=== PATIENT | female | born 1975 | race Caucasian/White ===

== ENCOUNTER 2018-04-15 13:49 | Emergency (ER) | payer OTHER, MEDICAID, SELFPAY ==
[2018-04-15 13:56] VITALS: BP 125/74; PULSE 87; RESP 20; TEMP 36.7; O2SAT 98
--- NOTE | 2018-04-15 14:14 | ED_ITS ---
HPI - Headache <Maribel Burgess PA-C - Last Filed: 04/15/18 21:39> General Chief Complaint: Headache Stated Complaint: SINUS PAIN AND HEADACHE,DIZZINESS Time Seen by Provider: 04/15/18 14:05 Source: patient Mode of arrival: ambulatory Limitations: no limitations History of Present Illness HPI Narrative: this 42 year old female due to what she states are ongoing sinus problems. She states there are no acute changes today, but her mom urged her to come in. She states that she has had symptoms since October, with intermittent vertigo and sinus pain. She states that pain is centered on the left side in her eye and also has pain in her teeth. She feels postnasal drip but does not bring that up. She also has a sensation of liquid in her ears and earache. She states that she has a history of ocular migraine and has had intermittent blurred vision since October, onset of these headaches. She states sometimes she feels a tingling in the side of her face. She states that she has not had cough, maybe had fever of 99 a couple of days ago but otherwise no fever. She was treated in October with antibiotics and states that she got better for several months, but now has had 2 more courses of antibiotics since January. She states she got somewhat better in January but not fully resolved, and now started again by PCP on cephalosporin 7 days ago and not better. She states that she continues to have increased sinus pain. She complains of spinning sensation and vertigo with head movements and position changes. She has had ongoing nausea but no vomiting. She has had swollen glands. She has not had any facial weakness or extremity weakness and has been going about her usual activities. She states that she has been eating and drinking normally and has actually been quite hungry. She states that her migraines sometimes respond to Excedrin and Advil. She states that tripped hands have no affect. She states that she is on propanolol for prophylaxis and sometimes takes and alprazolam to get rest and sometimes that helps, but sinus symptoms have been atypical for her. she states she does have some mild tinnitus off and on but not particularly bothersome. She denies cough, wheeze, or other new symptoms today. Related Data Allergies Allergy/AdvReac Type Severity Reaction Status Date / Time No Known Drug Allergies Allergy Verified 04/15/18 15:31 Review of Systems <Maribel Burgess PA-C - Last Filed: 04/15/18 21:39> Review of Systems ROS Unobtainable: All systems reviewed & are unremarkable except as noted in HPI and below PFSH <Maribel Burgess PA-C - Last Filed: 04/15/18 21:39> Surgical History Status post hysterectomy (Resolved) Social History Smoking Status: Former smoker Social History Smoking Status: Former smoker Comment: denies EtOH Exam <Maribel Burgess PA-C - Last Filed: 04/15/18 21:39> Narrative Exam Narrative: GENERAL APPEARANCE: Patient sitting comfortably, in no distress. HEAD: left maxillary and frontal tenderness, none on the right EYES: PERRL, EOMI. EARS: Normal auditory canals, TMS intact with normal light reflexes. ORAL CAVITY: Normal oropharynx. THROAT: Clear. NECK/THYROID: Neck supple, full range of motion, few small anterior cervical nodes, no supraclavicular nodes LUNGS: Clear to auscultation bilaterally, no cough on exam. HEART: RRR without murmur, nl S1, S2, no S3 or S4. NEUROLOGIC: Patient is alert and oriented with normal speech and coordination Initial Vital Signs Initial Vital Signs: Vital Signs Temperature 98.0 F 04/15/18 13:56 Pulse Rate 87 04/15/18 13:56 Respiratory Rate 20 04/15/18 13:56 Blood Pressure 125/74 04/15/18 13:56 Pulse Oximetry 98 04/15/18 13:56 <Landy Salazar DO - Last Filed: 04/16/18 07:24> Initial Vital Signs Initial Vital Signs: Vital Signs Temperature 98.0 F 04/15/18 13:56 Pulse Rate 87 04/15/18 13:56 Respiratory Rate 20 04/15/18 13:56 Blood Pressure 125/74 04/15/18 13:56 Pulse Oximetry 98 04/15/18 13:56 Course <SON Villarreal Last Filed: 04/15/18 21:39> Additional Information: Patient reported that nausea improved prior to Zofran and declined this. She is feeling markedly improved after Toradol and sitting up eating potato chips prior to discharge. Reviewed CT findings and advised discontinuing antibiotics. 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 Discussed certainly this could be migraine variant but they may want to consider further imaging and neurology consult as well as possible ENT Orders Ordered: Discontinued Medications Sodium Chloride (Normal Saline 0.9%) 1,000 mls @ 1,000 mls/hr IV BOLUS ONE Stop: 04/15/18 15:37 Last Infusion: 04/15/18 16:52 Dose: 0 mls/hr Admin: 04/15/18 15:19 Dose: 1,000 mls/hr Ketorolac Tromethamine (Toradol) 30 mg IV NOW ONE Stop: 04/15/18 14:39 Last Admin: 04/15/18 15:20 Dose: 30 mg Ondansetron HCl (Zofran) 4 mg IV NOW ONE Stop: 04/15/18 14:39 Last Admin: 04/15/18 16:52 Dose: Not Given Vital Signs - 8 hr 04/15/18 13:56 04/15/18 17:04 Temperature 98.0 F 98.6 F Pulse Rate 87 83 Respiratory Rate 20 16 Blood Pressure 125/74 112/77 Pulse Oximetry 98 100 <Landy Salazar DO - Last Filed: 04/16/18 07:24> Orders Ordered: Discontinued Medications Sodium Chloride (Normal Saline 0.9%) 1,000 mls @ 1,000 mls/hr IV BOLUS ONE Stop: 04/15/18 15:37 Last Infusion: 04/15/18 16:52 Dose: 0 mls/hr Admin: 04/15/18 15:19 Dose: 1,000 mls/hr Ketorolac Tromethamine (Toradol) 30 mg IV NOW ONE Stop: 04/15/18 14:39 Last Admin: 04/15/18 15:20 Dose: 30 mg Ondansetron HCl (Zofran) 4 mg IV NOW ONE Stop: 04/15/18 14:39 Last Admin: 04/15/18 16:52 Dose: Not Given Vital Signs - 8 hr 04/15/18 13:56 04/15/18 17:04 Temperature 98.0 F 98.6 F Pulse Rate 87 83 Respiratory Rate 20 16 Blood Pressure 125/74 112/77 Pulse Oximetry 98 100 MDM - Headache <Maribel Burgess PA-C - Last Filed: 04/15/18 21:39> Imaging Data sinus CT: Radiologist's impression: 41 Maribel Burgess PA-C Find Patient Imaging YNAI AGUILAR 42 F 1975 ACTIVITY DATE EXAM STATUS AUTHOR 04/15/18 14:[address] [address] [address] Scan Report Signed Patient: YANI AGUILAR BMR#: [id number] : 1975Acct:[id number] Age/Sex: 42 / FDate of Service: 04/15/18 Loc: ED Accession Number: [id number] Procedure: CT sinus screen wo con Ordering Provider: Maribel Burgess P.A-C PROCEDURE: CT SINUS SCREEN WO CON INDICATIONS: h/o ocular migraine, persistent L. sided sinus pain TECHNIQUE: Noncontrast 3.0 mm axial images acquired from the frontal sinuses to the mid- sella, with coronal and sagittal reformats. For radiation dose reduction, the following was used: automated exposure control, adjustment of mA and/or kV according to patient size. COMPARISON: None. FINDINGS: Image quality: Excellent. Maxillary Sinuses: No bony remodeling or destruction. Sinuses are clear. Ethmoid Air Cells: No bony remodeling or destruction. Sinuses are clear. Sphenoid Sinuses: No bony remodeling or destruction. Sinuses are clear. Frontal Sinuses: No bony remodeling or destruction. Sinuses are clear. Ostiomeatal Complexes: Ostiomeatal complexes are patent. No Corinne cells. Miscellaneous: Visualized intra-orbital contents are normal. No florence bullosa or paradoxical turbinate curvature. No nasal septal deviation. IMPRESSION: Clear sinuses. Dictated by: Elias Hernández M.D. on 04/15/2018 at 16:06 Approved by: Elias Hernández M.D. on 04/15/2018 at 16:07 Discharge Plan Departure Patient Disposition: Home Clinical Impression: Vertigo Migraine Qualifiers: Migraine type: unspecified Status migrainosus presence: without status migrainosus Intractability: not intractable Qualified Code(s): G43.909 - Migraine, unspecified, not intractable, without status migrainosus Discharge Date/Time: 04/15/18 17:04 Interventions: ED Discharge Assessment Last Done: 04/15/18 17:04 Instructions: DI for Migraine, DI for Vertigo Activity Restrictions/Additional Instructions: since you are feeling well now you can monitor at home. Please rest in a quiet environment tonight. Call your PCP tomorrow to arrange for follow-up this week. Continue your usual migraine medicines as needed as well as Dramamine if you need (remember it can make you sleepy) along with your history spray and signed. you have no sinus disease at all on your CT, and since you are having persistent symptoms I suspect this is not related to sinus infection. Please discontinue the antibiotic. Please talk with your PCP about whether to change your prophylactic migraine medicine, and whether to proceed with ENT workup given you r vertigo and occasional ringing in the ears. You may also wish to discuss Neurology evaluation and further imaging with her. Referrals: Tiana Allen ARNP [Primary Care Provider] - <Landy Salazar DO - Last Filed: 04/16/18 07:24> Cosign ED Attending Cosignature Attestation: I was immediately available in the department for consultation. This documentation has been reviewed and I agree with assessment and plan. Supervised by Landy Salazar DO
--- NOTE | 2018-04-15 14:38 | DI.CT.S_ITS ---
PROCEDURE: CT SINUS SCREEN WO CON INDICATIONS: h/o ocular migraine, persistent L. sided sinus pain TECHNIQUE: Noncontrast 3.0 mm axial images acquired from the frontal sinuses to the mid-sella, with coronal and sagittal reformats. For radiation dose reduction, the following was used: automated exposure control, adjustment of mA and/or kV according to patient size. COMPARISON: None. FINDINGS: Image quality: Excellent. Maxillary Sinuses: No bony remodeling or destruction. Sinuses are clear. Ethmoid Air Cells: No bony remodeling or destruction. Sinuses are clear. Sphenoid Sinuses: No bony remodeling or destruction. Sinuses are clear. Frontal Sinuses: No bony remodeling or destruction. Sinuses are clear. Ostiomeatal Complexes: Ostiomeatal complexes are patent. No Corinne cells. Miscellaneous: Visualized intra-orbital contents are normal. No florence bullosa or paradoxical turbinate curvature. No nasal septal deviation. IMPRESSION: Clear sinuses. Dictated by: Elias Hernández M.D. on 04/15/2018 at 16:06 Approved by: Elias Hernández M.D. on 04/15/2018 at 16:07
--- NOTE | 2018-04-15 14:55 | PC.NURSE ---
Pt states she has been seen three times since october of 2017 for sinus infections, treated with abx with no improvement. States she has a history of migraines and ocular migraines. Only relief is with a dark room and occasionally Excedrin helps. Has been a gradual increase in her symptoms in the last week with vision changes (spots, blurry), tingling and burning sensation on the left side of her face. Also notes some tenderness in her left arm and armpit as well as her sinuses.
[2018-04-15] MEDS: SODIUM CHLORIDE 0.9% 1,000 ML 1000 ML IV (15:19)
[2018-04-15] MEDS: KETOROLAC 60 MG/2 ML VIAL 30 MG IV (15:20)
--- NOTE | 2018-04-15 16:58 | PC.NURSE ---
I agree with all assesments and treatments performed by the student nurse.
[2018-04-15 17:04] VITALS: BP 112/77; PULSE 83; RESP 16; TEMP 37; O2SAT 100
== END 2018-04-15 17:04 | disposition home or self-care (01) ==
PROVIDERS: Emergency Provider Internal Medicine; PCP Nurse Practitioner
DX: R51 Headache (principal); R42 Dizziness and giddiness
CPT/HCPCS: 70486; 96361; 96374; 99283; 99284; J1885; J2405

== ENCOUNTER → 2023-07-14 12:27 | Outpatient (CLI) | payer OTHER, MEDICAID, SELFPAY ==
--- NOTE | 2023-07-14 12:30 | DI.MRI.S_ITS ---
PROCEDURE: MR ABDOMEN LIVER PROTOCOL INDICATIONS: Liver mass right lobe TECHNIQUE: Coronal HASTE, axial 2D FLASH in- and [id number]; axial breath-hold T2 FSE. Dynamic axial VIBE during the administration of contrast; post-contrast coronal VIBE or 2D FLASH with fat saturation from the hepatic dome to the iliac crests. Optional diffusion weighted imaging and ADC may be performed. COMPARISON: None. FINDINGS: Image quality: Diagnostic. Lung bases: Bilateral breast cysts.. Liver: Multiple liver lesions which demonstrate imaging properties of benign hemangiomas, including T2 intermediate signal, T1 hypointense signal, and peripheral, discontinuous enhancement with near complete fill-in. Largest lesions as follows: -5.9 by 4.7 cm lesion in the liver dome (series 4, image 11). -1.8 cm lesion in segment 8 (series 4, image 16). -1.5 cm lesion in segment 2 (series 4, image 16). Additional benign T2 hyperintense cysts are present. Gallbladder: No gallstones or wall thickening. Biliary ducts: No biliary dilation. Pancreas: No ductal dilation. Spleen: Size is within normal limits. Adrenal Glands: No adrenal nodules. Kidneys and Ureters: No hydronephrosis. No solid mass. No complex renal cystic lesion which requires follow up. Stomach and Bowel: Normal colonic caliber, without significant wall thickening. Peritoneum: No abnormal intraperitoneal fluid. No free air. Ventral Wall: No hernia. Abdominal Nodes: No retroperitoneal or mesenteric adenopathy by size criteria. Vessels: Aorta and inferior vena cava are normal in size. Bones: No aggressive osseous abnormality. IMPRESSION: Multiple benign liver hemangiomas, largest measuring 5.9 x 4.7 cm at the liver dome. Dictated by: Paras Lima M.D. on 07/14/2023 at 14:04 Approved by: Paras Lima M.D. on 07/14/2023 at 14:08
== END ==
PROVIDERS: PCP Family Medicine; Referring Provider Family Medicine; Visit Provider Family Medicine
DX: D18.09 Hemangioma of other sites (principal); K76.89 Other specified diseases of liver; N60.01 Solitary cyst of right breast; N60.02 Solitary cyst of left breast
CPT/HCPCS: 74183; A9579

== ENCOUNTER → 2023-09-18 11:13 | Outpatient (CLI) | payer OTHER, MEDICAID, SELFPAY ==
--- NOTE | 2023-09-18 | DI.MRI.S_ITS ---
PROCEDURE: MR LUMBAR SPINE WO CON INDICATIONS: Radiculopathy, lumbar region TECHNIQUE: Noncontrast sagittal T1 spin echo and T2 fast echo, sagittal STIR, and T2 fast spin echo through the lumbar spine. In cases with scoliosis, additional coronal T2 fast spin echo may be performed. COMPARISON: None. FINDINGS: Image quality: Excellent. Alignment and Curvature: There is normal bony alignment. Bone Marrow: Marrow is of normal overall signal. No acute vertebral body compression fractures. Spinal Cord: Conus medullaris terminates at the T12-L1 level. Visualized cord demonstrates normal signal and size. Paraspinous Soft Tissues: No paravertebral masses. T12-L1: Normal appearance. L1-L2: Normal appearance. L2-L3: Mild facet hypertrophy. No canal stenosis or foraminal stenosis. L3-L4: Minimal disc bulge. Mild facet hypertrophy. No canal stenosis or foraminal stenosis. L4-L5: Annulus tear. Mild disc bulge. Facet hypertrophy. No canal stenosis or foraminal stenosis. L5-S1: Chronic disc height loss. Broad-based moderate disc bulge with mild superimposed left paracentral disc protrusion with mild mass effect on the left S1 nerve root in the left lateral recess. No central canal stenosis. Facet hypertrophy. No foraminal stenosis. IMPRESSION: 1. At L5-S1, there is broad-based moderate disc bulge with mild superimposed left paracentral disc protrusion with mild mass effect on the left S1 nerve root. Recommend correlation for presence or absence of left S1 radicular symptoms. 2. Multilevel facet arthropathy. 3. No central canal stenosis or foraminal stenosis. Dictated by: Adi Friedman M.D. on 09/18/2023 at 14:14 Approved by: Adi Friedman M.D. on 09/18/2023 at 14:16
== END ==
PROVIDERS: PCP Family Medicine; Referring Provider Family Medicine; Visit Provider Family Medicine
DX: M51.17 Intervertebral disc disorders with radiculopathy, lumbosacral region (principal); M47.27 Other spondylosis with radiculopathy, lumbosacral region; M47.26 Other spondylosis with radiculopathy, lumbar region; M21.372 Foot drop, left foot
CPT/HCPCS: 72148

== ENCOUNTER → 2023-11-03 15:07 | Outpatient (CLI) | payer OTHER, MEDICAID, SELFPAY ==
--- NOTE | 2023-11-03 15:08 | DI.MRI.S_ITS ---
PROCEDURE: MR THORACIC SPINE WO/W CON INDICATIONS: MASS OF SPINAL CORD TECHNIQUE: Noncontrast sagittal T1 spin echo and T2 fast spin echo, sagittal STIR, axial T1 and T2 fast spin echo through the thoracic spine. After the administration of contrast, axial and sagittal T1 spin echo with fat saturation through the thoracic spine. COMPARISON: [facility], MR, MR ABDOMEN LIVER PROTOCOL, 07/14/2023, 12:37. [facility], MR, MR CERVICAL SPINE WO/W CON, 11/03/2023, 15:18. [facility], MR, MR LUMBAR SPINE WO CON, 09/18/2023, 11:42. FINDINGS: Image quality: This examination is limited by involuntary motion artifact. Alignment and curvature: There is normal bony alignment. Marrow: Marrow is of normal overall signal. Scattered foci are seen, which are hyperintense on T1-weighted and T2-weighted imaging, which are most consistent with benign vertebral body hemangiomas. No acute vertebral body compression fractures. Spinal cord: Visualized spinal cord is of normal signal and size, without abnormal enhancement. Paraspinous soft tissues: The known liver masses are partially seen. No additional paraspinous masses or abnormal enhancement can be seen. Miscellaneous: Central canal and foramina appear widely patent at all scanned levels. IMPRESSION: No thoracic spinal cord masses are seen. No abnormal enhancement is seen. There is partial visualization of the known liver masses, which are previously attributed to hemangiomas. Dictated by: Stuart Krueger M.D. on 11/03/2023 at 19:40 Approved by: Stuart Krueger M.D. on 11/03/2023 at 19:43
--- NOTE | 2023-11-03 15:09 | DI.MRI.S_ITS ---
PROCEDURE: MR CERVICAL SPINE WO/W CON INDICATIONS: MASS OF SPINAL CORD TECHNIQUE: Noncontrast sagittal T1 spin echo and T2 fast spin echo, sagittal STIR, foraminal oblique sagittal T2 fast spin echo, axial gradient echo or T2 fast spin echo through the cervical spine. After the administration of contrast, axial and sagittal T1 spin echo with fat saturation through the cervical spine. COMPARISON: [facility], MR, MR THORACIC SPINE WO/W CON, 11/03/2023, 15:18. [facility], MR, MR LUMBAR SPINE WO CON, 09/18/2023, 11:42. [facility], MR, MR ABDOMEN LIVER PROTOCOL, 07/14/2023, 12:37. FINDINGS: Image quality: This examination is limited by involuntary motion artifact. Some images are limited by inhomogeneous fat suppression. Alignment and curvature: There is normal bony alignment. Marrow: Marrow is normal in overall signal, without suspicious enhancement. Scattered foci are seen, which are hyperintense on T1-weighted and T2-weighted imaging, which are most consistent with benign vertebral body hemangiomas. Spinal cord: Visualized spinal cord has normal size and signal. No cerebellar tonsillar herniation. No abnormal intramedullary enhancement. Paraspinous soft tissues: No paravertebral masses or suspicious enhancement. C2-3: Normal appearance. C3-4: The disc height and disk signal are well-preserved. Minimal to mild disc bulge is seen. Mild facet joint hypertrophy is seen. There is [id number] left-sided and no right-sided neural foraminal narrowing. No central canal narrowing is seen. C4-5: Mild loss of disc height is seen. Loss of disc signal is seen. A mild degree of generalized disc osteophyte complex is seen. There is mild right-sided and moderate left-sided facet hypertrophy. There is moderate to severe left-sided and no right-sided neural foraminal narrowing. No central canal narrowing is seen. C5-6: Mild loss of disc height is seen. Loss of disc signal is seen. A mild degree of generalized disc osteophyte complex is seen. Mild facet joint hypertrophy is seen. No significant neural foraminal or central canal narrowing can be seen. C6-7: Normal appearance. C7-T1: Normal appearance. IMPRESSION: No spinal cord masses are seen. No abnormal enhancement is seen. Cervical spine degenerative changes are seen, which are worst at the C4-C5 level, where there is moderate to severe left-sided neural foraminal narrowing present. Dictated by: Stuart Krueger M.D. on 11/03/2023 at 19:43 Approved by: Stuart Krueger M.D. on 11/03/2023 at 19:46
== END ==
LOC: MRI 15:08
PROVIDERS: PCP Family Medicine; Referring Provider Orthopaedic Surgery Orthopaedic Surgery of the Spine; Visit Provider Orthopaedic Surgery Orthopaedic Surgery of the Spine
DX: M47.812 Spondylosis without myelopathy or radiculopathy, cervical region (principal); M48.02 Spinal stenosis, cervical region; G95.20 Unspecified cord compression; G95.89 Other specified diseases of spinal cord; K76.9 Liver disease, unspecified
CPT/HCPCS: 72156; 72157; A9579